=== PATIENT | female | born 1975 | race Caucasian/White ===

== ENCOUNTER → 2018-09-05 | Outpatient (CLI) | payer OTHER ==
[~2018-09-05] MED LIST: CYCL10 PO; HYDACE5 PO; LABE100 PO
[2018-09-05 19:05] LABS: BASOPHILS ABSOLUTE AUTO 0.07 K/mm3 (0.00-0.23); BASOPHILS PERCENT AUTO 1 % (0-2); EOSINOPHILS ABSOLUTE AUTO 0.16 K/mm3 (0.00-0.68); EOSINOPHILS PERCENT AUTO 1 % (0-6); Hematocrit 43.7 % (33.0-51.0); Hemoglobin 13.7 g/dL (11.5-16.0); IMMATURE GRAN ABSOLUTE AUTO 0.06 K/mm3 (0.00-0.10); IMMATURE GRAN PERCENT AUTO 1 % (0-1); LYMPHOCYTES ABSOLUTE AUTO 2.42 K/mm3 (0.84-5.20); LYMPHOCYTES PERCENT AUTO 19 % (21-46); MONOCYTES PERCENT AUTO 6 % (4-13); Mean Corpuscular HGB 28.1 pg (26.0-34.0); Mean Corpuscular HGB Conc 31.4 g/dL (31.5-36.5); Mean Corpuscular Volume 90 fL (80-100); Mean Platelet Volume 11.9 fL (9.1-12.4); NEUTROPHILS ABSOLUTE AUTO 9.04 K/mm3 (1.96-9.15); NEUTROPHILS PERCENT AUTO 72 % (41-73); Platelet Count 243 K/mm3 (150-400); RDW Coefficient Variation 15.1 % (11.7-14.2); RDW Standard Deviation 49.1 fL (35.1-46.3); Red Blood Cell Count 4.88 M/mm3 (3.80-5.20); White Blood Cell Count 12.55 K/mm3 (4.00-11.30)
[2018-09-05 19:32] LABS: Very Low Density Lipoprot Chol 36 mg/dL (6-32)
[2018-09-05 19:37] LABS: Alanine Aminotransfer (ALT/SGP 26 U/L (12-78); Albumin, Blood 3.6 g/dL (3.4-5.0); Albumin/Globulin Ratio 0.9 (0.8-1.8); Alk Phos 89 U/L (50-136); Anion Gap 4 mmol/L (6-16); Aspartate Aminotrans (AST/SGOT 16 U/L (12-37); Bilirubin, Total 0.4 mg/dL (0.1-1.0); Blood Urea Nitrogen 9 mg/dL (8-24); Bun/Creatinine Ratio 14.1 (12.0-20.0); CHOL/HDL RATIO 4.8; CO2, Blood 27 mmol/L (21-32); Calcium, Blood 8.8 mg/dL (8.5-10.1); Chloride, Blood 106 mmol/L (98-108); Cholesterol 211 mg/dL (50-200); Creatinine, Blood 0.64 mg/dL (0.40-1.00); Globulin, Blood 3.8 g/dL (2.2-4.0); Glomerular Filtration Rate >60 (60-); Glucose, Blood 99 mg/dL (70-99); HDL Cholesterol 44 mg/dL (>39); Low Density Lipoprotein Chol 131 mg/dL (0-110); Potassium, Blood 3.7 mmol/L (3.5-5.5); Sodium, Blood 137 mmol/L (136-145); Total Protein, Blood 7.4 g/dL (6.4-8.2); Triglycerides 181 mg/dL (30-160)
== END | disposition home or self-care (01) ==
LOC: LAB 14:00 → LAB SHORT 14:00
PROVIDERS: Physician Assistant
DX: Z13.220 Encounter for screening for lipoid disorders (principal); I10 Essential (primary) hypertension; R30.0 Dysuria
CPT/HCPCS: 80053; 80061; 85025

== ENCOUNTER → 2019-10-10 | Outpatient (CLI) | payer OTHER | END | disposition home or self-care (01) | LOC: LAB 18:53 → LAB SHORT 18:53 | DX: R30.9 Painful micturition, unspecified (principal) | CPT/HCPCS: 87086 ==

== ENCOUNTER → 2019-10-16 | Outpatient (CLI) | payer OTHER ==
[2019-10-18 15:09] LABS: HPV 16 Negative (Negative); HPV 18 Negative (Negative); HPV OTHER HR TYPES Negative (Negative)
== END | disposition home or self-care (01) ==
LOC: LAB SHORT 16:42 → LAB 16:42
PROVIDERS: Obstetrics & Gynecology
DX: Z12.4 Encounter for screening for malignant neoplasm of cervix (principal)
CPT/HCPCS: 87624; G0123

== ENCOUNTER 2019-11-27 06:30 | Day surgery (SDC) | payer OTHER ==
[~2019-11-27] VITALS: Ht 170.2 cm; Wt 106.6 kg
[~2019-11-27 06:30] MED LIST changes: +ALBU90OI INH; +CLON.1 PO; +LOSARTAN-HCTZ1 EACH PO
--- NOTE | 2019-11-27 06:56 | NUR ---
History, Chart, Medications and Allergies reviewed before start of procedure. Lungs clear T/O to Auscultation. Patient confirms NPO status and agrees with scheduled surgery. Pre-Op teaching done. Pt verbalizes understanding. Patient reports completing Chlorhexadine shower X2 prior to admission to hospital.
[2019-11-27 11:55] LABS: BASOPHILS ABSOLUTE AUTO 0.05 K/mm3 (0.00-0.23); BASOPHILS PERCENT AUTO 0 % (0-2); EOSINOPHILS ABSOLUTE AUTO 0.03 K/mm3 (0.00-0.68); EOSINOPHILS PERCENT AUTO 0 % (0-6); Hematocrit 39.9 % (33.0-51.0); Hemoglobin 12.4 g/dL (11.5-16.0); IMMATURE GRAN PERCENT AUTO 1 % (0-1); LYMPHOCYTES ABSOLUTE AUTO 1.07 K/mm3 (0.84-5.20); LYMPHOCYTES PERCENT AUTO 7 % (21-46); MONOCYTES ABSOLUTE AUTO 0.16 K/mm3 (0.16-1.47); MONOCYTES PERCENT AUTO 1 % (4-13); Mean Corpuscular HGB 26.7 pg (26.0-34.0); Mean Corpuscular HGB Conc 31.1 g/dL (31.5-36.5); Mean Corpuscular Volume 86 fL (80-100); Mean Platelet Volume 11.3 fL (9.1-12.4); NEUTROPHILS ABSOLUTE AUTO 15.16 K/mm3 (1.96-9.15); NEUTROPHILS PERCENT AUTO 91 % (41-73); Platelet Count 204 K/mm3 (150-400); RDW Coefficient Variation 15.1 % (11.7-14.2); RDW Standard Deviation 47.3 fL (35.1-46.3); Red Blood Cell Count 4.65 M/mm3 (3.80-5.20); White Blood Cell Count 16.57 K/mm3 (4.00-11.30)
--- NOTE | 2019-11-27 18:14 | NUR ---
PT POD 0 LAVH. PT VSS. HYPERTENSIVE AT TIMES, STARTED ON HOME BP MEDS. NICOTINE PATCH PLACED PT IS CEDS. PT VALENZUELA DRAINING WELL, TO BE DC'D IN THE AM. CONT IV FLUIDS ORDERED. TOLERATING REGULAR DIET AND DRINKING FLUIDS WELL WITHOUT ANY NAUSEA OR VOMITING. STERI STRIPS X3 WITH DRY RED DRAINAGE. JARVIS PAD WITH SCANT VAGINAL BLEEDING. PT AMBULATED HALLWAYS WELL WITH MIN ASSIST. USES CALL LIGHT APPROPRIATELY NEEDED.
[2019-11-28 04:05] LABS: BASOPHILS ABSOLUTE AUTO 0.03 K/mm3 (0.00-0.23); BASOPHILS PERCENT AUTO 0 % (0-2); EOSINOPHILS ABSOLUTE AUTO 0.03 K/mm3 (0.00-0.68); EOSINOPHILS PERCENT AUTO 0 % (0-6); Hematocrit 30.9 % (33.0-51.0); Hemoglobin 9.4 g/dL (11.5-16.0); IMMATURE GRAN ABSOLUTE AUTO 0.04 K/mm3 (0.00-0.10); IMMATURE GRAN PERCENT AUTO 0 % (0-1); LYMPHOCYTES ABSOLUTE AUTO 1.99 K/mm3 (0.84-5.20); LYMPHOCYTES PERCENT AUTO 16 % (21-46); MONOCYTES ABSOLUTE AUTO 0.87 K/mm3 (0.16-1.47); MONOCYTES PERCENT AUTO 7 % (4-13); Mean Corpuscular HGB 26.3 pg (26.0-34.0); Mean Corpuscular HGB Conc 30.4 g/dL (31.5-36.5); Mean Corpuscular Volume 87 fL (80-100); Mean Platelet Volume 11.4 fL (9.1-12.4); NEUTROPHILS PERCENT AUTO 77 % (41-73); Platelet Count 208 K/mm3 (150-400); RDW Standard Deviation 47.7 fL (35.1-46.3); Red Blood Cell Count 3.57 M/mm3 (3.80-5.20); White Blood Cell Count 12.76 K/mm3 (4.00-11.30)
--- NOTE | 2019-11-28 04:19 | NUR ---
SHIFT SUMMARY PT A/O X4, IND IN ROOM AND AMBULATING. PT HAS AMBULATED MULT TIMES DURING THE SHIFT. TOLERATING PO INTAKE, NO N/V. VALENZUELA DC'D AT 0415. SM AMT BLEEDING ON JARVIS PAD OVERNIGHT. PAIN WAS NOT CONTROLLED WITH PO PAIN MED AND [facility]SE WAS STARTED PER DR BROWN; PT REPORTS THIS HAS BEEN WORKING WELL. NO ACUTE CHANGES OVERNIGHT. VSS.
[2019-11-28] MEDS ORDERED: Percocet 5-3251 EACH PO (12:14)
[2019-11-28] MEDS ORDERED: IBUP100S PO (12:15)
--- NOTE | 2019-11-28 12:38 | NUR ---
6962 DISCHARGED TO HOME PT VOIDING, AMBULATING IN [place], VOIDING BLOOD TINGED URINE. PT REPORTS PAIN CONTROLLED WITH PO MEDS
== END 2019-11-28 12:30 | disposition home or self-care (01) ==
LOC: ORSCMMR 06:30 → ORD 07:30 → ORSCMMR 07:30 → SURS 11:10 → ORSCMMR 11-28 12:30
PROVIDERS: Obstetrics & Gynecology
PROC: 0UT9FZZ Resection of Uterus, Via Natural or Artificial Opening With Percutaneous Endoscopic Assistance (ICD-10-PCS; principal; 2019-11-27 07:30)
PROC: 0UT7FZZ Resection of Bilateral Fallopian Tubes, Via Natural or Artificial Opening With Percutaneous Endoscopic Assistance (ICD-10-PCS; principal; 2019-11-27 07:30)
DX: N92.0 Excessive and frequent menstruation with regular cycle (principal); N80.0 Endometriosis of uterus; D25.9 Leiomyoma of uterus, unspecified; N88.0 Leukoplakia of cervix uteri; N83.8 Other noninflammatory disorders of ovary, fallopian tube and broad ligament; T83.89XA Other specified complication of genitourinary prosthetic devices, implants and grafts, initial encounter; I10 Essential (primary) hypertension; J45.909 Unspecified asthma, uncomplicated; K21.9 Gastro-esophageal reflux disease without esophagitis; E66.01 Morbid (severe) obesity due to excess calories; Z68.36 Body mass index [BMI] 36.0-36.9, adult; Z79.899 Other long term (current) drug therapy
CPT/HCPCS: 36415; 85025; 88307; J0171; J0690; J1100; J1885; J2250; J2405; J2704; J2710; J2765; J3010; J7120

== ENCOUNTER 2022-05-27 09:02 | Day surgery (SDC) | payer OTHER ==
[~2022-05-27 09:02] MED LIST changes: +IBUP100S PO; +Percocet 5-3251 EACH PO
--- NOTE | 2022-05-27 11:28 | NUR ---
0920 PATIENT ARRIVED LATE FOR CTA. DIFFICULT PIV START. 20 G PIV TO THE LEFT FOREARM STARTED AFTER THRE ATTEMPTS. PATIENT TAKEN TO THE CT SUITE AND PREPPED FOR CT. DUE TO ANXIETY ONCE ON THE TABLE HR WAS 65 AND INCREASED TO 78 ON THE TABLE. PATIENT WAS GIVEN LOPRESSOR 5 MG IV AT 1000 AM BY NANY PRETTY RN AND THEN CTA WAS PERFORMED. VVS WERE STABLE AND MONITORED FOR 10 MINUTES AFTER. PATIENT PIV WAS REMOVED, CATH TIP INTACT ADN PRESSURE DRESSING APPLIED TO THE LEFT FOREARM. PATIENT WAS DRESSED AND ALL BELONGINGS GATHERED. PATIENT WAS DISCHARGED HOME AT 1035.
== END 2022-05-27 23:12 | disposition home or self-care (01) ==
LOC: CT 09:02
DX: R07.89 Other chest pain (principal); R06.02 Shortness of breath; F17.210 Nicotine dependence, cigarettes, uncomplicated; I10 Essential (primary) hypertension; Z88.2 Allergy status to sulfonamides
CPT/HCPCS: 75574; Q9967

== ENCOUNTER → 2024-06-07 | Outpatient (CLI) | payer OTHER ==
[2024-06-07 16:14] LABS: Appearance, Urine Clear (Clear); Bilirubin, Urine Neg (Neg); Blood, Urine Neg (Neg); Color, Urine Yellow (P-Yellow); Glucose Qualitative, Urine Neg (Neg); Ketones, Urine Neg (Neg); Leukocyte Esterase, Urine Neg (Neg); Nitrite, Urine Neg (Neg); Protein, Urine Neg (Neg); Urobilinogen, Urine NORM (Normal)
[2024-06-07 16:30] LABS: Magnesium, Blood 1.8 mg/dL (1.6-2.4)
[2024-06-07 16:32] LABS: Alanine Aminotransfer (ALT/SGP 29 U/L (12-78); Albumin, Blood 3.8 g/dL (3.4-5.0); Albumin/Globulin Ratio 1.1 (0.8-1.8); Alk Phos 87 U/L (50-136); Anion Gap 12 mmol/L (3-11); Aspartate Aminotrans (AST/SGOT 20 U/L (12-37); Bilirubin, Total 0.4 mg/dL (0.1-1.0); Blood Urea Nitrogen 16 mg/dL (8-24); Bun/Creatinine Ratio 26.3 (12.0-20.0); CHOL/HDL RATIO 7.9; CO2, Blood 26 mmol/L (21-32); Calcium, Blood 9.4 mg/dL (8.5-10.1); Chloride, Blood 103 mmol/L (98-108); Cholesterol 291 mg/dL (50-200); Creatinine, Blood 0.61 mg/dL (0.40-1.00); Globulin, Blood 3.6 g/dL (2.2-4.0); Glomerular Filtration Rate 110 (60-); Glucose, Blood 112 mg/dL (70-99); HDL Cholesterol 37 mg/dL (>39); LDL/HDL RATIO Unable to Calculate; Low Density Lipoprotein Chol Unable to Calculate mg/dL (0-110); Potassium, Blood 4.1 mmol/L (3.5-5.5); Sodium, Blood 137 mmol/L (136-145); Total Protein, Blood 7.4 g/dL (6.4-8.2); Triglycerides 429 mg/dL (30-160); Very Low Density Lipoprot Chol Unable to Calculate mg/dL (6-32)
[2024-06-07 16:44] LABS: LDL Direct Measurement 184 mg/dL (0-130)
[2024-06-07 17:19] LABS: Creatinine, Urine Random 60.1 mg/dL (27.00-270.00); Protein, Urine Random 5.7 mg/dL (0.0-11.9); Protein/Creat Ratio, Ur Random 0.1
== END ==
LOC: LAB 13:17 → LAB SHORT 13:17
PROVIDERS: Family Medicine
DX: I10 Essential (primary) hypertension (principal); E78.2 Mixed hyperlipidemia; R73.03 Prediabetes
CPT/HCPCS: 36415; 80053; 80061; 81003; 82570; 83036; 83721; 83735; 84156

== ENCOUNTER → 2024-08-15 | Outpatient (CLI) | payer OTHER | END | disposition home or self-care (01) | LOC: LAB SHORT 18:04 → LAB 18:04 | DX: N61.0 Mastitis without abscess (principal) | CPT/HCPCS: 87070; 87075; 87205 ==